=== PATIENT | female | born 1940 | race Caucasian/White ===

== ENCOUNTER → 2019-07-30 | Outpatient (CLI) | payer MEDICARE ==
[2019-07-31 01:12] LABS: Protein, Total 6.6 g/dL (6.2-8.2)
[2019-07-31 01:34] LABS: Creatine Kinase 68 U/L (26-186)
[2019-07-31 02:04] LABS: Rheumatoid Factor, Qnt <4 IU/mL (0-15)
[2019-07-31 02:41] LABS: Hemoglobin A1C 5.1 % (4.0-6.0)
[2019-07-31 14:28] LABS: Albumin 4.01 g/dL (3.80-4.90); Gamma Globulin 0.94 g/dL (0.70-1.50)
== END | disposition home or self-care (01) ==
LOC: LABWHC1 15:42
PROVIDERS: ATTEND Psychiatry & Neurology Neurology
DX: G62.9 Polyneuropathy, unspecified (principal); R73.9 Hyperglycemia, unspecified
CPT/HCPCS: 36415; 82550; 82607; 82747; 83036; 84165; 85652; 86038; 86431

== ENCOUNTER → 2019-10-05 | Outpatient (CLI) | payer MEDICARE ==
--- NOTE | 2019-10-05 08:50 | US ---
EXAMINATION TYPE: US abdomen complete DATE OF EXAM: 10/05/2019 COMPARISON: CT urogram 2017 CLINICAL HISTORY: R10.10 Upper abdominal pain, unspecified. pain EXAM MEASUREMENTS: Liver Length: 12.5 cm Gallbladder Wall: .2 cm CBD: .5 cm Spleen: 9.0 cm Right Kidney: 9.3 x 3.6 x 3.7 cm Left Kidney: 10.0 x 3.5 x 3.8 cm Pancreas: wnl Liver: wnl Gallbladder: wnl Evidence for sonographic [place]'s sign: No CBD: wnl Spleen: wnl Right Kidney: wnl Left Kidney: wnl Upper IVC: wnl Abd Aorta: wnl The visualized liver is homogeneous without intrahepatic ductal dilatation. The 2 larger solid masses on CT are not clearly seen on ultrasound images saved. Smaller lesion posterior upper right hepatic lobe axial image 17 series 12 roughly 1.3 cm shows peripheral nodular enhancement with progressive ce ntripetal filling consistent with hemangioma on CT. Larger lesion probably hepatic dome nearly 2.6 cm on image 9 also favoring hemangioma not clearly seen. The intrahepatic portion of the IVC and visual ized proximal mid and distal abdominal aorta are within normal limits. There is no evidence of dorothea lithiasis. Common bile duct is unremarkable. The visualized portions of the pancreas are homogenous . The spleen is unremarkable. Kidneys are symmetric and free of hydronephrosis. No renal lesions a re seen on images saved. IMPRESSION: No new or acute findings are evident to account for patient's symptoms.
--- NOTE | 2019-10-05 08:56 | XR ---
EXAMINATION TYPE: XR thoracic spine 2V DATE OF EXAM: 10/05/2019 COMPARISON: NONE HISTORY: Pain Alignment is anatomic. There is no compression deformities. Mild multilevel degenerative disc diseas e and hypertrophic changes. Subtle curvature of the spine noted. IMPRESSION: 1. Mild multilevel degenerative disc disease.
== END ==
LOC: RADUSWWP 07:35
PROVIDERS: ATTEND Psychiatry & Neurology Neurology
DX: R10.10 Upper abdominal pain, unspecified (principal); M51.34 Other intervertebral disc degeneration, thoracic region
CPT/HCPCS: 72070; 76700

== ENCOUNTER → 2020-06-06 | Outpatient (CLI) | payer MEDICARE ==
--- NOTE | 2020-06-09 09:05 | MM ---
Reason for exam: screening (asymptomatic). Last mammogram was performed 1 year and 5 months ago. History: Family history of breast cancer in maternal aunt at age 65. Physical Findings: A clinical breast exam by your physician is recommended on an annual basis and results should be correlated with mammographic findings. MG 3D Screening Mammo W/Cad Bilateral CC and MLO view(s) were taken. Prior study comparison: January 05, 2019, mammogram, performed at [facility]. November 21, 2017, mammogram, performed at [facility]. The breast tissue is heterogeneously dense. This may lower the sensitivity of mammography. There are benign appearing round vascular calcifications bilaterally. There is no dominant lesion. Asymmetric breast tissue right stable upper aspect. ASSESSMENT: Benign, BI-RAD 2 RECOMMENDATION: Routine screening mammogram of both breasts in 1 year.
== END | disposition home or self-care (01) ==
LOC: RADMAMWWP 09:17
PROVIDERS: ATTEND Obstetrics & Gynecology
DX: Z12.31 Encounter for screening mammogram for malignant neoplasm of breast (principal)
CPT/HCPCS: 77063; 77067

== ENCOUNTER → 2021-07-07 | Outpatient (CLI) | payer MEDICARE ==
--- NOTE | 2021-07-07 11:55 | BD ---
EXAMINATION TYPE: Axial Bone Density DATE OF EXAM: 07/07/2021 COMPARISON: 06/02/2007 prior report. CLINICAL HISTORY: Postmenopausal female. Known osteoporosis. Height: 64 IN Weight: 140 LBS FRAX RISK QUESTIONS: History of Fracture in Adulthood: YES RT WRIST AGE 60 RISK FACTORS HISTORY OF: History of Wrist Fracture: YES RT AGE 60 Surgery to Wrist (right): YES AGE 60 Active: YES Diet low in dairy products/other sources of calcium: YES Postmenopausal woman: PARTIAL HYST AGE 50 Lost more than 2 inches in height since high school: YES 16/11" MEDICATIONS: Additional Medications: CALCIUM, VIT D, SLEEPING AID, PROBIOTIC, EXAM MEASUREMENTS: Bone mineral densitometry was performed using the [employer] System. Bone mineral density as measured about the Lumbar spine is: ----- L1-L4(G/cm2): 1.041 T Score Values are as follows: ----- L2: -1.3 ----- L3: -0.6 ----- L4: -1.4 ----- L1-L4: -1.2 Bone mineral density has: Decreased -3.6% since study of: 06/02/2007 Bone mineral density about the R hip (g/cm2): 0.825 Bone mineral density about the L hip (g/cm2): 0.762 T Score values are as follows: -----R Neck: -1.5 -----L Neck: -2.0 -----R Total: -0.9 -----L Total: -1.5 Bone mineral density has: Decreased -7.1% since study of: 06/02/2007 IMPRESSION: Osteopenia (T Score between -2.5 and -1) remains present. There is slightly increased risk of fracture and the patient may be considered for treatment. Re-Screen 2-5 years. NOTE: T-SCORE=SD OF THE YOUNG ADULT MEAN.
== END | disposition home or self-care (01) ==
LOC: RADBDWWP 09:55
PROVIDERS: ATTEND Obstetrics & Gynecology
DX: M85.89 Other specified disorders of bone density and structure, multiple sites (principal); Z78.0 Asymptomatic menopausal state
CPT/HCPCS: 77080

== ENCOUNTER → 2021-07-07 | Outpatient (CLI) | payer MEDICARE ==
--- NOTE | 2021-07-08 11:58 | MM ---
Reason for exam: screening (asymptomatic). Last mammogram was performed 1 year and 1 month ago. History: Patient is postmenopausal. Family history of breast cancer in maternal aunt at age 65. Physical Findings: A clinical breast exam by your physician is recommended on an annual basis and results should be correlated with mammographic findings. MG 3D Screening Mammo W/Cad Bilateral CC and MLO view(s) were taken. Prior study comparison: June 06, 2020, bilateral MG 3d screening mammo w/cad. January 05, 2019, mammogram, performed at [facility]. November 21, 2017, mammogram, performed at [facility]. There are scattered fibroglandular densities. No significant changes when compared with prior studies. ASSESSMENT: Benign, BI-RAD 2 RECOMMENDATION: Routine screening mammogram of both breasts in 1 year.
== END | disposition home or self-care (01) ==
LOC: RADMAMWWP 09:36
PROVIDERS: ATTEND Obstetrics & Gynecology
DX: Z12.31 Encounter for screening mammogram for malignant neoplasm of breast (principal); Z80.3 Family history of malignant neoplasm of breast
CPT/HCPCS: 77063; 77067

== ENCOUNTER → 2022-08-24 | Outpatient (CLI) | payer MEDICARE ==
--- NOTE | 2022-08-25 11:03 | MM ---
Reason for Exam: Screening (asymptomatic). Last mammogram was performed 1 year(s) and 1 month(s) ago. Patient History: Menarche at age 15. First Full-Term at age 23. Left ovary removed at age 50. Right ovary removed at age 50. Hysterectomy at age 50. Postmenopausal. Maternal aunt had breast cancer, age 65. Risk Values: Rosita 5 year model risk: 1.5%. NCI Lifetime model risk: 2.3%. Prior Study Comparison: 11/21/2017 Screening Mammogram, [facility]. 01/05/2019 Screening Mammogram, [facility]. 06/06/2020 Bilateral Screening Mammogram, [facility]. 07/07/2021 Bilateral Screening Mammogram, [facility]. Tissue Density: There are scattered fibroglandular densities. Findings: Analyzed By CAD. Unchanged focal asymmetry upper outer quadrant right breast data anterior to middle depth. Chronic nodularity posterior lateral right breast particularly when compared to the 2019 exam. Benign fat necrosis calcification. No significant change from prior exams. Overall Assessment: Benign, BI-RAD 2 Management: Screening Mammogram of both breasts in 1 year. 1. Patient should continue monthly self breast exams. 2. A clinical breast exam by your physician is recommended on an annual basis. 3. This exam should not preclude additional follow-up of suspicious palpable abnormalities. Electronically signed and approved by: David Kearns M.D. Radiologist
== END | disposition home or self-care (01) ==
LOC: RADMAMWWP 13:14
PROVIDERS: ATTEND Obstetrics & Gynecology
DX: Z12.31 Encounter for screening mammogram for malignant neoplasm of breast (principal); Z78.0 Asymptomatic menopausal state; Z80.3 Family history of malignant neoplasm of breast; Z90.721 Acquired absence of ovaries, unilateral
CPT/HCPCS: 77063; 77067

== ENCOUNTER → 2023-10-05 | Outpatient (CLI) | payer MEDICARE ==
--- NOTE | 2023-10-05 20:08 | BD ---
EXAMINATION TYPE: Axial Bone Density DATE OF EXAM: 10/05/2023 CLINICAL HISTORY: 83 years old Female. ICD-10 CODE: M85.88 OTHER DISORDER OF BONE Height: 64 Weight: 157 FRAX RISK QUESTIONS: History of Fracture in Adulthood: yes Secondary Osteoporosis: no RISK FACTORS HISTORY OF: History of Wrist Fracture: yes, rt When: 2004 Surgery to Wrist (right): yes When: 2004 Family History of Osteoporosis: no Active: yes Diet low in dairy products/other sources of calcium: no Postmenopausal woman: yes Lost more than 2 inches in height since high school: no Frequent falls: no MEDICATIONS: Additional Medications: yes sleep meds, inflammation meds EXAM MEASUREMENTS: Bone mineral densitometry was performed using the [employer] System. Bone mineral density as measured about the Lumbar spine is: ----- L1-L4(G/cm2): 1.044 T Score Values are as follows: ----- L1: -1.5 ----- L2: -1.2 ----- L3: -0.6 ----- L4: -1.5 ----- L1-L4: -1.1 Z Score Values are as follows: ----- L1: 0.1 ----- L2: 0.5 ----- L3: 1.1 ----- L4: 0.2 ----- L1-L4: 0.5 Bone mineral density has: Decreased -0.5% since study of: 07/07/2021 Bone mineral density about the R hip (g/cm2): 0.894 Bone mineral density about the L hip (g/cm2): 0.810 T Score values are as follows: -----R Neck: -1.4 -----L Neck: -2.1 -----R Total: -0.9 -----L Total: -1.6 Z Score values are as follows: -----R Neck: 0.6 -----L Neck: 0.0 -----R Total: 1.0 -----L Total: 0.3 Bone mineral density has: Decreased -0.4% since study of: 07/07/2021 FRAX%s: The graph provided illustrates a 23.2% chance for a major osteoporotic fx and a 6.6% chance f or the hips probability for fx in 10 years time. IMPRESSION: Osteopenia (T Score between -2.5 and -1). There is slightly increased risk of fracture and the patient may be considered for treatment. Re-Screen 2-5 years. NOTE: T-SCORE=SD OF THE YOUNG ADULT MEAN.
--- NOTE | 2023-10-07 16:19 | MM ---
Reason for Exam: Screening (asymptomatic). Last mammogram was performed 1 year(s) and 2 month(s) ago. Patient History: Menarche at age 15. First Full-Term at age 23. Left ovary removed at age 50. Right ovary removed at age 50. Hysterectomy at age 50. Postmenopausal. Maternal aunt had breast cancer, age 65. Risk Values: Rosita 5 year model risk: 1.4%. NCI Lifetime model risk: 2.1%. Prior Study Comparison: 06/06/2020 Bilateral Screening Mammogram, [facility]. 07/07/2021 Bilateral Screening Mammogram, [facility]. 08/24/2022 Bilateral MG 3D screening mammo w/cad, [facility]. Tissue Density: There are scattered fibroglandular densities. Findings: Analyzed By CAD. Pattern appears symmetrical and stable. No significant interval change is evident. Focal asymmetries within the right breast stable from comparison. Benign coarse calcifications within the right breast, stable. Benign vascular calcifications are present bilaterally. No suspicious groups of microcalcifications, spiculated or lobular masses, architectural distortion or other secondary signs of malignancy are mammographically apparent. Overall Assessment: Benign, BI-RAD 2 Management: Screening Mammogram of both breasts in 1 year. A negative mammogram report should not preclude additional follow up of suspicious palpable abnormalities. Patient should continue monthly self breast exam. A clinical breast exam by your physician is recommended on an annual basis and results should be correlated with mammographic findings. Electronically signed and approved by: Andrea Johnson D.O. Radiologis
== END | disposition home or self-care (01) ==
LOC: RADMAMWWP 12:03
PROVIDERS: ATTEND Obstetrics & Gynecology
DX: Z12.31 Encounter for screening mammogram for malignant neoplasm of breast (principal); M85.89 Other specified disorders of bone density and structure, multiple sites; Z78.0 Asymptomatic menopausal state; Z80.3 Family history of malignant neoplasm of breast
CPT/HCPCS: 77063; 77067; 77080

== ENCOUNTER → 2025-02-22 | Outpatient (CLI) | payer MEDICARE | END | disposition home or self-care (01) | LOC: RADMAMWWP 14:53 | PROVIDERS: ATTEND Internal Medicine Geriatric Medicine | DX: Z53.9 Procedure and treatment not carried out, unspecified reason (principal) ==